=== PATIENT | female | born 1995 | race Hispanic/Latino ===

== ENCOUNTER 2024-02-17 09:06 | Emergency (ER) | payer OTHER ==
[~2024-02-17] VITALS: Ht 160 cm; Wt 83.5 kg
[2024-02-17 09:09] VITALS: BP 144/91; PULSE 98; RESP 16
[2024-02-17] MEDS: ACETAMINOPHEN 500 MG TABLET PO ONE (09:29)
== END 2024-02-17 10:03 | disposition home or self-care (01) ==
LOC: EDH 09:06
DX: S00.03XA Contusion of scalp, initial encounter (principal); X58.XXXA Exposure to other specified factors, initial encounter; Y93.89 Activity, other specified; Y92.89 Other specified places as the place of occurrence of the external cause; Y99.8 Other external cause status
CPT/HCPCS: 99282